=== PATIENT | female | born 1995 | race Caucasian/White ===

== ENCOUNTER 2024-09-05 12:49 | Emergency (ER) | payer MEDICAID ==
[2024-09-05] MEDS: Phenazopyridine 95 MG Tab PO ONE (13:14)
[2024-09-05 13:25] LABS: APPEARANCE,URINE TURBID; BILIRUBIN,URINE SMALL (NEGATIVE); COLOR,URINE YELLOW; GLUCOSE,URINE NEGATIVE (NEGATIVE); KETONES,URINE NEGATIVE (NEGATIVE); LEUKOCYTE ESTERASE,URINE SMALL (NEGATIVE); NITRITE,URINE NEGATIVE (NEGATIVE); OCCULT BLOOD,URINE LARGE (NEGATIVE); PROTEIN,URINE >=300 mg/dL (NEGATIVE); UROBILINOGEN,URINE 0.2 E.U./dL (0.2-1.0)
[2024-09-05 13:36] LABS: BACTERIA,URINE FEW /HPF (NONE TO FEW); RBC,URINE PACKED /HPF
[2024-09-05] MEDS: Take Home: Nitrofurantoin Monohydrate/Macrocrystalline 100 MG, 6 Cap Pack PO ONE (13:51)
== END 2024-09-05 13:57 | disposition home or self-care (01) ==
LOC: LL.ED 12:49
DX: N30.90 Cystitis, unspecified without hematuria (principal)
CPT/HCPCS: 81001; 87086; 87088; 87186; 99283; A9270-GY